=== PATIENT | male | born 1990 | race Caucasian/White ===

== ENCOUNTER 2019-09-29 17:32 | Emergency (ER) | payer SELFPAY ==
[2019-09-29 17:40] VITALS: BP 118/68; PULSE 105; RESP 16; TEMP 37.3; O2SAT 100
[2019-09-29 17:56] LABS: Basophils Percent Auto 0.3 % (0.2-1.2); Eosinophils Absolute Auto 0.1 K/mm3 (0-0.3); Eosinophils Percent Auto 1.4 % (0-4.4); Hematocrit 42.7 % (42.0-52.0); Immature Granulocyte Absolute 0.01 K/mm3 (0.00-0.031); Immature Granulocyte Percent A 0.2 % (0-0.5); Lymphocytes Percent Auto 46.4 % (18.3-44.2); Mean Corpuscular HGB Conc 35.1 g/dl (32-36); Mean Corpuscular Hemoglobin 30.7 pg (26-34); Mean Corpuscular Volume 87.3 fl (80-100); Monocytes Absolute Auto 0.6 K/mm3 (0.1-0.6); Monocytes Percent Auto 8.5 % (2.6-8.5); Neutrophils Absolute Auto 2.8 K/mm3 (1.3-6.7); Neutrophils Percent Auto 43.2 % (45.5-73.1); Platelet Count Result 278 k/mm3 (150-375); Red Blood Count 4.89 M/mm3 (4.6-6.20); Red Cell Distribution Width 11.7 % (11.5-14.5); White Blood Count 6.5 K/mm3 (4.5-10.0)
[2019-09-29 18:06] LABS: Alanine Aminotransferase 69 U/L (4-50); Albumin Level 4.5 g/dL (3.5-5.1); Alkaline Phosphatase 69 U/L (38-126); Aspartate Amino Transferase 60 U/L (17-59); Bilirubin,Total 0.3 mg/dL (0.2-1.3); Blood Urea Nitrogen 14 mg/dL (9-20); Calcium 9.4 mg/dL (8.4-10.2); Carbon Dioxide 26 mmol/L (22-30); Chloride 102 mmol/L (98-107); Estimated CRCL calculation 108 ml/min; Estimated Glomerular Filt Rate > 60; Glucose 128 mg/dL (75-110); Potassium 3.8 mmol/L (3.4-5.0); Sodium 139 mmol/L (137-145)
[2019-09-29 18:38] LABS: Add Urine Microscopic? YES; Appearance Urine Cloudy (Clear); Bilirubin Urine Negative (Negative); Blood Urine Negative (Negative); Budding Yeast Urine Present /hpf; Color Urine Yellow (Yellow); Glucose Urine UA Negative (Negative); Ketones Urine Trace mg/dL (Negative); Leukocyte Esterase Ur Negative LEU/UL (Negative); Mucus Urine Rare /lpf; Nitrate Urine Negative (Negative); Protein Urine Negative (Negative); RBC Urine 0-2 /hpf (0-2); Specific Grav Ur 1.021 (1.001-1.035); Urobilinogen Urine Negative mg/dL (<2.0); WBC Urine 0-3 /hpf
[2019-09-29 18:51] VITALS: BP 132/82; PULSE 88; RESP 18; O2SAT 99
[2019-09-29] MEDS: MUPIROCIN 2% OINT 22 GM TUBE 1 APPLIC TOPICAL (19:34)
--- NOTE | 2019-09-29 19:59 | ED.GENADULT ---
HPI - General Adult General Chief complaint: Unspecified Stated complaint: groin swelling with abominal pain Time Seen by Provider: 09/29/19 18:47 Source: patient Mode of arrival: ambulatory Limitations: no limitations History of Present Illness HPI narrative: Patient is a 29-year-old male presents to the emergency department with complaint of groin pain and swelling. Patient reports onset of symptoms 2 days ago. Patient noticed pain, itching, swelling, and redness in the pubic/groin region and penile shaft. Patient has not noticed any specific rash or drainage. He denies any urinary symptoms, nausea, vomiting, diarrhea, or fever. Patient does report scratching the dorsum of his penis a couple of days ago and his symptoms became noticeable after taking a shower with a new body wash the next morning after scratching himself. Patient does report symptoms have improved today compared to yesterday. He has not taken any medications for his symptoms. Related Data Allergies Allergy/AdvReac Type Severity Reaction Status Date / Time No Known Allergies Allergy Verified 09/29/19 18:48 Review of Systems Review of Systems: All systems reviewed & are unremarkable except as noted in HPI and below Constitutional: Constitutional: Denies chills and Denies fever(s) Gastrointestinal: Gastrointestinal: Reports abdominal pain, Denies diarrhea, Denies nausea and Denies vomiting Genitourinary: Genitourinary: Denies genital lesions, Denies dysuria, Denies penile discharge, Denies testicular pain and Denies urinary frequency Musculoskeletal: Musculoskeletal: Reports back pain (Chronic) PMFSH Past Medical History Medical History (Updated 09/29/19 @ 20:07 by Martita Urias MD) No significant past medical history Surgical History Surgical History (Updated 09/29/19 @ 20:02 by Martita Urias MD) No significant past surgical history Social History Social History (Updated 09/29/19 @ 20:03 by Martita Urias MD) Smoking status: Current every day smoker Alcohol use details: occasional Substance use type: marijuana Exam Const: General: cooperative, no acute distress and alert Nutritional Appearance: well nourished Orientation/consciousness: patient oriented x3 Limitations: no limitations HENMT: Mouth: Yes lip normal and Yes moist mucous membranes Resp: Effort & Inspection: normal respiratory effort Auscultation: clear to auscultation bilaterally Cardio: Rate: regular rate Rhythm: regular rhythm GI: GI Palp: Yes Soft to palpation and No Tenderness to palpation present (GI) Auscultation: normal bowel sounds : Male General Exam: No erythema, No hernia, No inguinal lymphadenopathy, No Genital lesions present and No tenderness Penis: Yes erythematous (Faint small area on dorsum of penis with minimal swelling present. ) and Yes other (Faint suggestion of abrasion to dorsum of penis) Skin: General skin exam: normal color Neuro: General: patient oriented x3 Cognition (Neuro): normal cognition Speech: normal speech Extrem: General: normal to inspection, full ROM and no clubbing, cyanosis or edema Psych: Mental Status: mental status grossly normal Affect: normal affect Attitude: cooperative Course Course Emergency Course: Patient with faint area of suggested abrasion on the dorsum of his penis. Otherwise completely normal examination. Labs unremarkable. Advised use of topical antibiotic ointment and usage of Benadryl. Advised importance of primary care follow-up or to return to the emergency department for worsening symptoms. Vital Signs Vital signs: Vital Signs Temperature 99.1 F 09/29/19 17:40 Pulse Rate 105 H 09/29/19 17:40 Respiratory Rate 16 09/29/19 17:40 Blood Pressure 118/68 09/29/19 17:40 Pulse Oximetry 100 09/29/19 17:40 Temperature 99.1 F 09/29/19 17:40 Pulse Rate 88 09/29/19 18:51 Respiratory Rate 18 09/29/19 18:51 Blood Pressure 132/82 09/29/19 18:51
== END 2019-09-29 21:02 | disposition home or self-care (01) ==
PROVIDERS: Emergency Provider Emergency Medicine
DX: S30.812A Abrasion of penis, initial encounter (principal); F17.200 Nicotine dependence, unspecified, uncomplicated; X58.XXXA Exposure to other specified factors, initial encounter
CPT/HCPCS: 36415; 80053; 81001; 85025; 87491; 87591; 99283; A9270

== ENCOUNTER 2020-04-26 16:20 | Emergency (ER) | payer SELFPAY ==
--- NOTE | ~2020-04-26 | XR_ITS ---
XR foot RT min 3V 04/26/2020 16:40 INDICATION: Right foot pain after recent trauma PROCEDURE: 4 views right foot COMPARISON: No prior studies for comparison. FINDINGS: Fracture, dislocation or subluxation is not identified. The soft tissues appear within norm al limits. No foreign bodies are identified. IMPRESSION: 1: NO ACUTE BONE OR JOINT ABNORMALITY IDENTIFIED. Reviewed, dictated and finalized at location B.
[2020-04-26 16:29] VITALS: BP 140/89; PULSE 121; RESP 20; TEMP 37.2; O2SAT 98
--- NOTE | 2020-04-26 16:43 | ED.LOWEXIN ---
HPI - Extremity Injury (Lower) General Chief Complaint: Extremity Injury, Lower Stated Complaint: R/foot swollen & pain History of Present Illness HPI Narrative: This is a 30-year-old male comes in complaining of foot pain and swelling patient states that he was moving a dresser and dropped a safe on his foot. Patient states that it hurts when he time that he walks and when he tries to walk on his heel he has pain as well Related Data Allergies Allergy/AdvReac Type Severity Reaction Status Date / Time No Known Allergies Allergy Verified 04/26/20 16:32 Review of Systems Review of Systems: Narrative: CONSTITUTIONAL: Denies fever, chills, or sweats. EYES: Denies visual changes, redness, or discharge. ENT: Denies rhinorrhea, congestion, sore throat, or otalgia. CARDIOVASCULAR:Denies chest pain, palpitations, or edema. RESPIRATORY: Denies cough or dyspnea. GASTROINTESTINAL: Denies abdominal pain, nausea, vomiting, or diarrhea. GENITOURINARY: Denies dysuria or hematuria. SKIN:[Denies rash or itching. MUSCULOSKELETAL:Denies back pain, right metatarsal pain joint pain, or myalgia. NEUROLOGIC: Denies headache, numbness, or weakness. PSYCHIATRIC:Denies anxiety or depression PMFSH Past Medical History Medical History (Updated 04/26/20 @ 16:53 by Timothy Cardona NP) No significant past medical history Surgical History Surgical History (Updated 09/29/19 @ 20:02 by Martita Urias MD) No significant past surgical history Social History Social History (Updated 09/29/19 @ 20:03 by Martita Urias MD) Smoking status: Current every day smoker Substance use type: marijuana Comments At time as signature, I have reviewed and agree with nursing past medical, social, surgical and family history. Please see nursing chart for further information. There is no relevant family history pertinent to the presenting complaint. Exam Narrative: Exam Narrative: GENERAL:Well-appearing, well-nourished, and in no acute distress. HEAD:Normocephalic, atraumatic. EYES: PERRLA and EOMI. ENT: Nares clear, no rhinorrhea or epistaxis. Mucous membranes moist. NECK: Supple. CHEST: Clear to auscultation. No respiratory distress. HEART: Regular rate and rhythm. No murmur heard. Normal peripheral pulses. ABDOMEN: Soft, nontender, nondistended, normal active bowel sounds. EXTREMITIES: Normal range of motion. No edema. SKIN: Warm, dry, no rash. NEURO: No focal deficits. Alert and oriented x3. Course Vital Signs Vital signs: Vital Signs Temperature 99.0 F 04/26/20 16:29 Pulse Rate 121 H 04/26/20 16:29 Respiratory Rate 04/26/20 16:29 Blood Pressure 140/89 04/26/20 16:29 Pulse Oximetry 98 04/26/20 16:29 Temperature 99.0 F 04/26/20 16:29 Pulse Rate 121 H 04/26/20 16:29 Respiratory Rate 04/26/20 16:29 Blood Pressure 140/89 04/26/20 16:29 Pulse Oximetry 98 04/26/20 16:29 MDM - Extremity Injury (Lower) MDM Narrative Medical decision making narrative: Negative for any fractures on x-ray Differential Diagnosis Differential diagnosis: Likely fracture of toe, ankle fracture and other (Foot fracture) Discharge Plan Discharge Clinical Impression: Foot sprain Qualifiers: Encounter type: initial encounter Laterality: right Qualified Code(s): S93.601A - Unspecified sprain of right foot, initial encounter Sprain, IP, toe, fifth, right Qualifiers: Encounter type: initial encounter Qualified Code(s): S93.514A - Sprain of interphalangeal joint of right lesser toe(s), initial encounter Patient Disposition: Home, Self-Care Condition: Stable Instructions: Antibiotic Form, Ibuprofen (By mouth) Additional Instructions: Avoid weight bearing until the pain subsides. Ice to the area 20-30 minutes 4-6 times a day Elevate above heart Elastic wrap directed for comfort for the next 5-7 days Tylenol for lesser pain Ibuprofen regularly for the next 2-3 days for the inflammation Follow up
== END 2020-04-26 17:03 | disposition home or self-care (01) ==
PROVIDERS: Emergency Provider Nurse Practitioner Family
DX: S93.514A Sprain of interphalangeal joint of right lesser toe(s), initial encounter (principal); W22.8XXA Striking against or struck by other objects, initial encounter
CPT/HCPCS: 73630; 99213; G0463

== ENCOUNTER 2021-10-07 17:22 | Emergency (ER) | payer OTHER, SELFPAY ==
[2021-10-07 17:25] VITALS: BP 137/83; PULSE 112; RESP 18; TEMP 36.8; O2SAT 99
--- NOTE | 2021-10-07 20:28 | ED.SKABFB ---
HPI - Skin/Abscess/Foreign Bdy General Chief complaint: Skin/Abscess/Foreign Body <Merline Cummings Bela [employer] SALES REPRESENTATIVE - Last Filed: 10/07/21 20:33> Stated complaint: arm pain <Merline Cramer APRN - Last Filed: 10/07/21 20:33> Time Seen by Provider: 10/07/21 18:57 <Merline Cramer [employer] SERVICES SALES REPRESENTATIVE - Last Filed: 10/07/21 20:33> Source: patient <Merlinejessica Cramer APRN - Last Filed: 10/07/21 20:33> Mode of arrival: ambulatory <Merline Cramer APRN - Last Filed: 10/07/21 20:33> Limitations: no limitations <Merline Cramer APRN - Last Filed: 10/07/21 20:33> History of Present Illness HPI narrative: 31-year-old male presents today with complaints of swelling redness and warmth to the left inner upper arm. Patient states a couple days ago he was injecting meth and missed his vein. Since then he has noted swelling and redness. Girlfriend marked the area of redness yesterday. Currently area is decreased in size. Patient denies any fevers, body aches, chills, and heart rate on exam is 90 bpm. Patient states he does use tap water to mix his meth with an injection but denies using any other solutions to mix with. <Merline Cramer APRN - Last Filed: 10/07/21 20:33> Related Data Allergies/Adverse reactions: Allergies Allergy/AdvReac Type Severity Reaction Status Date / Time No Known Allergies Allergy Verified 10/07/21 17:29 <Merline Cramer APRN - Last Filed: 10/07/21 20:33> Review of Systems Review of Systems: CONSTITUTIONAL: Denies fever, chills, or sweats. EYES: Denies visual changes, redness, or discharge. ENT: Denies rhinorrhea, congestion, sore throat, or otalgia. CARDIOVASCULAR: Denies chest pain, palpitations, or edema. RESPIRATORY: Denies cough or dyspnea. GASTROINTESTINAL: Denies abdominal pain, nausea, vomiting, or diarrhea. GENITOURINARY: Denies dysuria or hematuria. SKIN: Denies rash or itching. Redness, swelling, and warmth to left upper inner arm. MUSCULOSKELETAL: Denies back pain, joint pain, or myalgia. NEUROLOGIC: Denies headache, numbness, dizziness, or weakness. PSYCHIATRIC: Denies anxiety or depression. <Merline Cramer APRN - Last Filed: 10/07/21 20:33> PMFSH Past Medical History Medical History: Medical History (Updated 10/07/21 @ 20:09 by Merline Cramer APRN) No significant past medical history <Merline Cramer APRN - Last Filed: 10/07/21 20:33> Surgical History Surgical History: Surgical History (Updated 09/29/19 @ 20:02 by Martita Urias MD) No significant past surgical history <Merline Cramer APRN - Last Filed: 10/07/21 20:33> Social History Social History: Social History (Updated 09/29/19 @ 20:03 by Martita Urias MD) Smoking status: Current every day smoker Alcohol use details: occasional Substance use type: marijuana <Merline Cramer APRN - Last Filed: 10/07/21 20:33> Exam Narrative: GENERAL: Well-appearing, well-nourished, and in no acute distress. HEAD: Normocephalic, atraumatic. EYES: PERRLA and EOMI. ENT: Nares clear, no rhinorrhea or epistaxis. Mucous membranes moist. Oropharynx without tonsillar hypertrophy exudate or other lesions. Bilateral TMs pearly vieira nonbulging NECK: Supple. No adenopathy or masses. No carotid bruits or JVD CHEST: Clear to auscultation. No respiratory distress. No wheezes rales or rhonchi HEART: Regular rate and rhythm. No murmur heard. Normal peripheral pulses. ABDOMEN: Soft, nontender, nondistended, normal active bowel sounds. EXTREMITIES: Normal range of motion. No edema. SKIN: Warm, dry, no rash. Area of swelling that is hard to touch approximately 3 cm in diameter with redness, and warmth to left upper inner arm. NEURO: No focal deficits. Alert and oriented x3. PSYCH: Normal mood and affect. <Merline Cramer APRN - Last Filed: 10/07/21 20:33> Course DIRECTOR OF REVENUE CYCLE MANAGEMENT/PA Physician Supervision For this patient encounter, I reviewed the DIRECTOR OF REVENUE CYCLE MANAGEMENT or PA documentation, treatment plan, and medical decisio
[2021-10-07] MEDS: CEPHALEXIN 500 MG CAPSULE PO (20:29)
--- NOTE | 2021-10-07 20:31 | PC.NURSE ---
Patient refused tetanus shot, states he has gotten one in the past five years.
== END 2021-10-07 20:30 | disposition home or self-care (01) ==
PROVIDERS: Emergency Provider Nurse Practitioner Family
DX: L03.114 Cellulitis of left upper limb (principal); F17.200 Nicotine dependence, unspecified, uncomplicated
CPT/HCPCS: 99283; A9270

== ENCOUNTER 2022-10-24 10:51 | Outpatient (CLI) | payer OTHER, SELFPAY ==
--- NOTE | 2022-10-24 11:02 | ECG_ITS ---
Measurements Intervals [place] Rate: 89 P: 73 [place]: 147 QRS: 93 QRSD: 116 T: 71 QT: 353 QTc: 432 Interpretive Statements SINUS RHYTHM VENTRICULAR PREMATURE COMPLEX RIGHT AXIS DEVIATION INTRAVENTRICULAR CONDUCTION DELAY BORDERLINE ECG NO PREVIOUS ECG AVAILABLE FOR COMPARISON Electronically Signed On 10-24-2022 11:27:15 CDT by Obdulio Mcarthur D.O.
== END 2022-10-24 10:52 | disposition home or self-care (01) ==
LOC: ANHCARD 10:52
PROVIDERS: PCP Nurse Practitioner Family; Visit Provider Nurse Practitioner Family
DX: R07.9 Chest pain, unspecified (principal); I45.9 Conduction disorder, unspecified
CPT/HCPCS: 93005

== ENCOUNTER 2023-02-26 15:49 | Emergency (ER) | payer OTHER, SELFPAY ==
--- NOTE | ~2023-02-26 | XR_ITS ---
EXAMINATION: XR hand LT min 3V DATE: 02/26/2023 16:11 INDICATION: Left hand injury and pain. TECHNIQUE: 3 views of left hand were obtained. COMPARISON: None. FINDINGS: Bone alignment is normal. No acute fracture. There is an old healed fracture of neck of fif th metacarpal. Joint spaces are normal. IMPRESSION: 1. No acute fracture. Reviewed, dictated and finalized at location A. IMPRESSION: 1. No acute fracture.
[2023-02-26 15:53] VITALS: BP 115/61; PULSE 92; RESP 18; TEMP 36.2; O2SAT 98
--- NOTE | 2023-02-26 16:47 | ED.GENADULT ---
HPI - General Adult General Chief complaint: Extremity Injury, Upper Stated complaint: hand injury Time Seen by Provider: 02/26/23 15:56 Source: patient Mode of arrival: ambulatory Limitations: no limitations History of Present Illness HPI narrative: This is a 32-year-old male who presents to the ED with chief complaint of a left hand injury that [place]. He states he was grabbing a rope and trying to balance on something out of the pool when he slipped and had to pull on the rope. He states that his hand twisted when he pulled and he felt like it stretched his fingers out. He now has pain into the dorsum of the left middle finger and dorsal left hand. Denies any further site of pain or injury. Denies numbness or weakness. Related Data Allergies Allergy/AdvReac Type Severity Reaction Status Date / Time No Known Allergies Allergy Verified 02/26/23 16:52 [facility] Past Medical History Medical History (Updated 02/26/23 @ 16:57 by Mayur Lucero PA-C) Abnormal EKG Anxiety Bipolar affect, depressed Carpal tunnel syndrome Chest pain Decreased exercise tolerance Depression Drug abuse Encounter to establish care Family history of colon cancer Family history of coronary artery disease Family history of Trent syndrome GERD (gastroesophageal reflux disease) Headache Hep C w/o coma, chronic Hepatitis Hepatitis C No significant past medical history Rhinitis Right flank pain Seizures Tobacco abuse Urinary hesitancy Surgical History Surgical History No significant past surgical history Family History Family History (Updated 04/23/22 @ 15:25 by FARHAN Arroyo) Father Alcoholism Depression Anxiety Mother Hypertension Depression Anxiety Colon cancer Sibling Anxiety Depression Grandparent Alcoholism Anxiety Depression Cancer Heart disease Cerebrovascular accident Social History Social History (Updated 10/24/22 @ 13:16 by FARHAN Arroyo) Smoking packs per day: 0.25 Smoking cigarettes per day: 5.0 Years smoked: 20 Smoking pack-years: 5.00 Smoking status: Current every day smoker Alcohol intake: never Substance use: current Substance use type: marijuana, hallucinogens and methamphetamine Lack of Transportation: No Current Housing: Decline to Answer Concerned About Future Housing: Decline to Answer Difficulty Paying Gas/Electric Bills: Decline to Answer Difficulty Paying for Meds: Decline to Answer Currently Unemployed: Decline to Answer Education: Decline to Answer Difficulty w/ Childcare or Family Care: Decline to Answer Exam Narrative: GENERAL: Well-appearing, well-nourished, and in no acute distress. HEAD: Normocephalic, atraumatic. EYES: PERRLA and EOMI. ENT: Nares clear, no rhinorrhea or epistaxis. Mucous membranes moist. Oropharynx without tonsillar hypertrophy exudate or other lesions. NECK: Supple. No adenopathy or masses. CHEST: No respiratory distress. Clear to auscultation. No wheezes rales or rhonchi HEART: Regular rate and rhythm. No murmur heard. Normal peripheral pulses. ABDOMEN: Soft, nontender, nondistended, normal active bowel sounds. MSK: Left hand: No deformity or bruising. No swelling. No wounds. Mild tenderness throughout the dorsum of the middle finger and dorsum of the left hand. No anatomical snuffbox tenderness. Neurovascularly intact distally. Right hand: Benign MSK exam is otherwise benign. Ambulatory. Normal range of motion. No edema. SKIN: Warm, dry, no rash. NEURO: Alert and oriented x3. No focal deficits. PSYCH: Normal mood and affect. Course Vital Signs Vital signs: Vital Signs Temperature 97.1 F L 02/26/23 15:53 Pulse Rate 92 02/26/23 15:53 Respiratory Rate 18 02/26/23 15:53 Blood Pressure 115/61 02/26/23 15:53 Pulse Oximetry 98 02/26/23 15:53 Oxygen Delivery Room Air 02/26/23 15:5
== END 2023-02-26 17:02 | disposition home or self-care (01) ==
PROVIDERS: Emergency Provider Physician Assistant; PCP Nurse Practitioner Family
DX: S66.912A Strain of unspecified muscle, fascia and tendon at wrist and hand level, left hand, initial encounter (principal); B18.2 Chronic viral hepatitis C; K21.9 Gastro-esophageal reflux disease without esophagitis; F17.210 Nicotine dependence, cigarettes, uncomplicated; X50.9XXA Other and unspecified overexertion or strenuous movements or postures, initial encounter
CPT/HCPCS: 73130; 99283

== ENCOUNTER 2024-03-29 11:05 | Emergency (ER) | payer OTHER, SELFPAY ==
--- NOTE | ~2024-03-29 | XR_ITS ---
EXAMINATION: XR chest 2V DATE: 03/29/2024 11:44 INDICATION: Cough. TECHNIQUE: Frontal and lateral views of the chest were obtained on 3 radiographs. COMPARISON: None. FINDINGS: There is no pneumonia, pleural effusion, or pneumothorax. The heart size is normal. IMPRESSION: 1. No acute cardiopulmonary disease. Reviewed, dictated and finalized at location A.
--- NOTE | 2024-03-29 11:12 | ED.URI ---
HPI - URI/Sore Throat General Chief Complaint: Upper Respiratory Infection Stated Complaint: chest congestion/Fever/ headache Time Seen by Provider: 03/29/24 11:33 Source: patient and RN notes reviewed Mode of arrival: ambulatory Limitations: no limitations History of Present Illness HPI Narrative: 33-year-old male presents with concern for 5-6 day history of cough, chest congestion, chest discomfort, headache, fatigue, chills. Reports he had an 1 episode of dizziness over the weekend with tingling limbs. Denies any subsequent episodes MD elicited complaint: cough Related Data Allergies Allergy/AdvReac Type Severity Reaction Status Date / Time No Known Allergies Allergy Verified 03/29/24 11:37 Review of Systems Review of Systems: CONSTITUTIONAL: Reports malaise, chills, sweats EYES: Denies visual changes, redness, or discharge. ENT: Reports rhinorrhea, congestion CARDIOVASCULAR: Denies chest pain, palpitations, or edema. RESPIRATORY: Reports cough, chest congestion, dyspnea. GASTROINTESTINAL: Denies abdominal pain, nausea, vomiting, diarrhea SKIN: Denies rash or itching. MUSCULOSKELETAL: Denies myalgia. NEUROLOGIC: Reports headache. All systems reviewed & are unremarkable except as noted in HPI and below PMFSH Past Medical History Medical History Abnormal EKG Anxiety Bipolar affect, depressed Carpal tunnel syndrome Chest pain Decreased exercise tolerance Depression Drug abuse Encounter to establish care Family history of colon cancer Family history of coronary artery disease Family history of Trent syndrome GERD (gastroesophageal reflux disease) Headache Hep C w/o coma, chronic Hepatitis Hepatitis C No significant past medical history Rhinitis Right flank pain Seizures Tobacco abuse Urinary hesitancy Surgical History Surgical History No significant past surgical history Family History Family History Father Alcoholism Depression Anxiety Mother Hypertension Depression Anxiety Colon cancer Sibling Anxiety Depression Grandparent Alcoholism Anxiety Depression Cancer Heart disease Cerebrovascular accident Social History Social History Smoking packs per day: 0.25 Smoking cigarettes per day: 5.0 Years smoked: 20 Smoking pack-years: 5.00 Smoking status: Current every day smoker Alcohol intake: never Substance use: current Substance use type: marijuana, hallucinogens and methamphetamine Lack of Transportation: No Current Housing: Decline to Answer Concerned About Future Housing: Decline to Answer Difficulty Paying Gas/Electric Bills: Decline to Answer Difficulty Paying for Meds: Decline to Answer Currently Unemployed: Decline to Answer Education: Decline to Answer Difficulty w/ Childcare or Family Care: Decline to Answer Comments At time of signature, agree with nursing past medical, surgical, social and family history. There is no relevant family history pertinent to the presenting complaint Exam Narrative: GENERAL: Well-appearing, well-nourished, and in no acute distress. HEAD: Normocephalic EYES: PERRLA, conjunctivae clear ENT: Nares clear. Mucous membranes moist. TM pearly vieira with dull light reflex bilaterally; no tragal tenderness. Oropharynx not erythematous without lesions. Tonsils not enlarged and without exudate, no drooling, no hoarseness, no trismus, uvula midline. NECK: Supple. No lymphadenopathy CHEST: Diminished breath sounds throughout. No wheezing, rhonchi, rales, or stridor. No respiratory distress, speaks in full sentences. HEART: Regular rate and rhythm. No murmur heard. SKIN: Warm, dry, no rash. NEURO: Alert and oriented x3. PSYCH: Normal mood and affect Course Course Emergency Course:
[2024-03-29 11:23] VITALS: BP 122/66; PULSE 73; RESP 18; TEMP 36.9; O2SAT 100
[2024-03-29 15:36] LABS: EDINFLUASCREEN Negative; EDINFLUBSCREEN Negative
== END 2024-03-29 12:00 | disposition home or self-care (01) ==
PROVIDERS: Emergency Provider Nurse Practitioner
DX: J22 Unspecified acute lower respiratory infection (principal); F17.210 Nicotine dependence, cigarettes, uncomplicated; K21.9 Gastro-esophageal reflux disease without esophagitis
CPT/HCPCS: 71046; 87426; 87804; 99213; G0463

== ENCOUNTER 2024-05-30 10:21 | Emergency (ER) | payer OTHER, SELFPAY ==
--- NOTE | ~2024-05-30 | XR_ITS ---
XR shoulder RT min 2V 05/30/2024 10:45 INDICATION: Right shoulder pain PROCEDURE: 4 views right shoulder COMPARISON: No prior studies for comparison. FINDINGS: Fracture, dislocation or subluxation is not identified. The soft tissues appear within norm al limits. No foreign bodies are identified. IMPRESSION: 1: NO ACUTE BONE OR JOINT ABNORMALITY IDENTIFIED. Reviewed, dictated and finalized at location B.
[2024-05-30 10:24] VITALS: BP 139/90; PULSE 81; RESP 18; TEMP 36.6; O2SAT 99
--- NOTE | 2024-05-30 11:09 | ED.GENADULT ---
HPI - General Adult General Chief complaint: Extremity Injury, Upper Stated complaint: right shoulder pain Time Seen by Provider: 05/30/24 10:34 History of Present Illness HPI narrative: 34-year-old male present to the emergency department for evaluation for right shoulder strain. Patient reports he was attempting to pull start a machine that then pulled on his arm injuring his right shoulder. Patient states he has got right lateral neck right parascapular and right shoulder tightness. Patient does have free range of motion the right shoulder but does report increased pain with movement and stretching. Related Data Allergies Allergy/AdvReac Type Severity Reaction Status Date / Time No Known Allergies Allergy Verified 05/30/24 10:22 Review of Systems Review of Systems: All systems reviewed & are unremarkable except as noted in HPI and below PMFSH Past Medical History Medical History Abnormal EKG Anxiety Bipolar affect, depressed Carpal tunnel syndrome Chest pain Decreased exercise tolerance Depression Drug abuse Encounter to establish care Family history of colon cancer Family history of coronary artery disease Family history of Trent syndrome GERD (gastroesophageal reflux disease) Headache Hep C w/o coma, chronic Hepatitis Hepatitis C No significant past medical history Rhinitis Right flank pain Seizures Tobacco abuse Urinary hesitancy Surgical History Surgical History No significant past surgical history Family History Family History Father Alcoholism Depression Anxiety Mother Hypertension Depression Anxiety Colon cancer Sibling Anxiety Depression Grandparent Alcoholism Anxiety Depression Cancer Heart disease Cerebrovascular accident Social History Social History Smoking packs per day: 0.25 Smoking cigarettes per day: 5.0 Years smoked: 20 Smoking pack-years: 5.00 Smoking status: Current every day smoker Alcohol intake: never Substance use: current Substance use type: marijuana, hallucinogens and methamphetamine Lack of Transportation: No Current Housing: Decline to Answer Concerned About Future Housing: Decline to Answer Difficulty Paying Gas/Electric Bills: Decline to Answer Difficulty Paying for Meds: Decline to Answer Currently Unemployed: Decline to Answer Education: Decline to Answer Difficulty w/ Childcare or Family Care: Decline to Answer Exam Narrative: APPEARANCE: Well appearing, no pain, no distress, well-nourished. HEAD: normocephalic, atraumatic. EYES: PERRLA/EOMI, conjunctivae clear. NOSE: Normal no drainage EARS:TMS clear with good light reflex. THROAT: Pharynx clear, no exudate. NECK: Supple. No adenopathy, no masses. RESPIRATORY: Airway patent, respirations nonlabored. Clear to auscultation bilaterally, no rales, rhonchi, wheezing. CARDIOVASCULAR: Regular rate and rhythm without murmurs rubs or gallops. ABDOMINAL: Soft, nontender, nondistended, normal bowel sounds MUSCULOSKELETAL: Full range of motion of right shoulder but complaint of discomfort with this. Tenderness to right lateral trapezius and periscapular tenderness. NEURO: Alert. Cranial nerves II through XII intact. Good gait. Good coordination SKIN: Warm, dry. Normal Color Course Vital Signs Vital signs: Vital Signs Temperature 97.8 F 05/30/24 10:24 Pulse Rate 81 05/30/24 10:24 Respiratory Rate 18 05/30/24 10:24 Blood Pressure 139/90 05/30/24 10:24 Pulse Oximetry 99 05/30/24 10:24 Oxygen Delivery Room Air 05/30/24 10:24 Temperature 97.8 F 05/30/24 10:24 Pulse Rate 81 05/30/24 10:24 Respiratory Rate 18 05/30/24 10:24 Blood Pressure 139/90 05/30/24 10:24 Pulse Oximetry 99 05/30/24 10:24 O
== END 2024-05-30 11:27 | disposition home or self-care (01) ==
PROVIDERS: Emergency Provider Emergency Medicine
DX: S46.911A Strain of unspecified muscle, fascia and tendon at shoulder and upper arm level, right arm, initial encounter (principal); F17.210 Nicotine dependence, cigarettes, uncomplicated; F41.9 Anxiety disorder, unspecified; F31.9 Bipolar disorder, unspecified; K21.9 Gastro-esophageal reflux disease without esophagitis; X50.0XXA Overexertion from strenuous movement or load, initial encounter
CPT/HCPCS: 73030; 99283; A4565

== ENCOUNTER → 2024-06-21 14:28 | Outpatient (CLI) | payer OTHER, SELFPAY ==
--- NOTE | ~2024-06-21 | XR_ITS ---
HISTORY: M54.50 - Low back pain, unspecified COMPARISON: None TECHNIQUE: 3 views of the lumbar spine were performed FINDINGS: No acute compression fracture is present. Bone mineralization is age-appropriate. Facet arthropathy within the mid to lower lumbar spine is present. Preservation of vertebral body height and intervertebral disc spaces is noted. IMPRESSION: Trace degenerative disease, without compression fracture. Reviewed, dictated and finalized at location A. [employer]
== END ==
PROVIDERS: PCP Nurse Practitioner Family; Visit Provider Nurse Practitioner Family
DX: M54.50 Low back pain, unspecified (principal); M79.604 Pain in right leg
CPT/HCPCS: 72100

== ENCOUNTER 2024-12-01 09:43 | Emergency (ER) | payer OTHER, SELFPAY ==
--- NOTE | 2024-12-01 09:45 | ED.URI ---
HPI - URI/Sore Throat General Chief Complaint: Upper Respiratory Infection Stated Complaint: Ear / Throat pain / congestion Time Seen by Provider: 12/01/24 09:44 Source: patient Mode of arrival: ambulatory Limitations: no limitations History of Present Illness HPI Narrative: Brionna a 34-year-old male patient presenting to the clinic today with complaints of fever, ear pain, sore throat, nasal congestion and chest congestion x5 days. He reports fevers high as 102?. Denies any chest pain or shortness of breath. Cough is productive Related Data Allergies Allergy/AdvReac Type Severity Reaction Status Date / Time No Known Allergies Allergy Verified 12/01/24 09:47 Review of Systems Review of Systems: Pertinent positives per HPI. Patient denies any rash, headache, visual changes, dizziness, shortness of breath, chest pain, palpitations, nausea, vomiting, diarrhea, constipation, abdominal pain, or any urinary issues. [facility] Past Medical History Medical History Low back pain radiating to right lower extremity Hep C w/o coma, chronic Family history of Trent syndrome Abnormal EKG Urinary hesitancy Right flank pain Tobacco abuse Family history of coronary artery disease Decreased exercise tolerance Chest pain Drug abuse Family history of colon cancer Bipolar affect, depressed Depression Carpal tunnel syndrome Encounter to establish care Rhinitis Hepatitis C Seizures Hepatitis Headache GERD (gastroesophageal reflux disease) Anxiety No significant past medical history Surgical History Surgical History No significant past surgical history Family History Family History Father Alcoholism Depression Anxiety Mother Hypertension Depression Anxiety Colon cancer Sibling Anxiety Depression Grandparent Alcoholism Anxiety Depression Cancer Heart disease Cerebrovascular accident Social History Social History Smoking packs per day: 0.25 Smoking cigarettes per day: 5.0 Years smoked: 20 Smoking pack-years: 5.00 Smoking status: Current every day smoker Alcohol intake: never Substance use: current Substance use type: marijuana, hallucinogens and methamphetamine Lack of Transportation: No Current Housing: Decline to Answer Concerned About Future Housing: Decline to Answer Difficulty Paying Gas/Electric Bills: Decline to Answer Difficulty Paying for Meds: Decline to Answer Currently Unemployed: Decline to Answer Education: Decline to Answer Difficulty w/ Childcare or Family Care: Decline to Answer Comments At the time of my signature, I reviewed and agree with the nursing past medical, surgical, social, and family history. There is no relevant family history pertinent to the patient complaint. Exam Narrative: General: Well-developed, well nourished, in no apparent distress Head: Normocephalic, atraumatic Eyes: Pupils equally round and reactive to light bilaterally, EOM intact, sclera and conjunctive clear, no discharge, lids normal Ears: Right TMs intact and congested, left TM intact, bulging, red, ear canals clear, no drainage, grossly hearing normal. Nose: Nares patent, clear nasal discharge, no inflammation, no sinus tenderness. Mouth: Oral pharynx red with bilateral tonsillar enlargement without lesions or masses, good dentition, MMM. Neck: Supple, trachea midline,enlargement of anterior cervical nodes, no thyroid masses or goiter palpable. Cardio: Regular rate and rhythm, s1 and s2 normal, no murmur appreciated. Resp: Clear to auscultation bilaterally, no rhonchi, rales, wheezing or rubs Course Course Emergency Course: Portions of this record may have been created with voice recognition software. Level of Care: Express Care Visit Vital Signs Vital signs: Vital Signs Temperature 36.9 C 12/01/24 09:52 Pulse Rate 71 12/01/24 09:52 Respiratory Rate 17 12/01/24 09:52 Blood Pressure 131/71 12/01/24 09:52 Pulse Oximetry 99 12/01/24 09:52 Oxygen Delivery Room Air 12/01/24 09:52 Temperature 36.9 C 12/01/24 09:52 Pulse Rate 71 12/01/24 09:52 Respiratory Rate 17 12/01/24 09:52 Blood Pressure 131/71 12/01/24 09:52 Pulse Oximetry 99 12/01/24 09:52 Oxygen Delivery Room Air 12/01/24 09:52 Vital signs reviewed MDM - URI/Sore Throat MDM Narrative Medical decision making narrative: At the time of visit patient is resting comfortably on the exam table. Patient appears to be nontoxic. Labs: Strep test was positive in the clinic today. Plan: I suspect patient has URI, left otitis media, and strep pharyngitis. Prescription for amoxicillin was sent to the pharmacy. Supportive measures were discussed with the patient and they voiced understanding discharge instructions and agrees to treatment plan. Return precautions reviewed Differential Diagnosis Differential diagnosis: Likely upper respiratory infection, otitis media, sinusitis, viral infection, bronchitis, influenza, pharyngitis and other (COVID) Lab Data Labs: Lab Results 12/01/24 Range/Units 09:57 POC Grp A Strep Screen Pending Discharge Plan Discharge Clinical Impression: Acute left otitis media, Acute streptococcal pharyngitis URI (upper respiratory infection) Qualifiers: URI type: unspecified URI Qualified Code(s): J06.9 - Acute upper respiratory infection, unspecified Patient Disposition: Home Condition: Stable Instructions: Antibiotic Form, Strep Throat (ED), Ear Infection (ED), Cold Symptoms (ED) Additional Instructions: Strep test was positive in the clinic today. Take prescription medications only as prescribed-amoxicillin Change your toothbrush in 24 hours after initiation of the antibiotics. Increase fluids and stay well hydrated Tylenol/motrin for pain/fever Flonase and OTC antihistamines as directed Vicks vapor rub to open sinuses Sinus rinses for congestion Cepacol spray, cough drops, throat lozenges, warm tea with honey/lemon, gargle salt water to soothe throat BRAT diet for diarrhea Clear liquids x 24 hours then advance as tolerated for nausea/vomiting Go to the ED if you develop a worsening in your condition- high fever not controlled by Tylenol or Motrin, dehydration, weakness, lethargy, shortness of breath, or chest pain. Follow up with your PCP in 3-5 days if symptoms persist. Patient Language: Turkmen Prescriptions: New amoxicillin 875 mg tablet 875 mg PO Q12H 10 Days Qty: 20 0RF Follow-up/Referrals: Cristine Michele NP [Primary Care Provider] - Stand Alone Forms: Work/School Release IP Time of Disposition: 09:56 Quality NIHSS Nursing Documentation ED NIHSS nursing documentation: reviewed/agree
[2024-12-01 09:52] VITALS: BP 131/71; PULSE 71; RESP 17; TEMP 36.9; O2SAT 99
[2024-12-01 09:58] LABS: EDSTREPNEGPOS1 Positive (Negative)
== END 2024-12-01 09:58 | disposition home or self-care (01) ==
PROVIDERS: Emergency Provider Nurse Practitioner Family; PCP Nurse Practitioner Family
DX: H66.92 Otitis media, unspecified, left ear (principal); J02.0 Streptococcal pharyngitis; F17.210 Nicotine dependence, cigarettes, uncomplicated; F12.90 Cannabis use, unspecified, uncomplicated; F16.90 Hallucinogen use, unspecified, uncomplicated; F15.90 Other stimulant use, unspecified, uncomplicated; K21.9 Gastro-esophageal reflux disease without esophagitis; Z86.19 Personal history of other infectious and parasitic diseases
CPT/HCPCS: 87880; 99213; G0463